=== PATIENT | female | born 1985 | race Caucasian/White ===

== ENCOUNTER 2016-12-10 14:12 | Inpatient (IN) | payer BC ==
[2016-12-10 16:14] LABS: Hematocrit 36 % (35-47); Hemoglobin 11.9 g/dl (12.0-16.0); Mean Corpuscular HGB Conc 34 g/dl (31-36); Mean Corpuscular Hemoglobin 29 pg (27-31); Mean Corpuscular Volume 87 fL (80-97); Mean Platelet Volume 8 um3 (7.4-10.4); Red Blood Count 4.08 10^6/ul (4.0-5.4); Red Cell Distribution Width 13 % (10.5-15); White Blood Count 13.1 10^3/ul (3.5-10.8)
[2016-12-10] MEDS ORDERED: OBEPIDURAL* 0 ML ONE (19:19)
[2016-12-10] MEDS ORDERED: Sodium Citrate/Citric Acid* 15 ML UDC PO PRN (21:00)
[2016-12-10] MEDS ORDERED: OBEPIDURAL* 250 ML EPIDURAL SCH (21:00)
[2016-12-10] MEDS ORDERED: EPHEDrine (Pressors)* 50 MG/ML VIAL IV PUSH PRN ×2 (21:00)
[2016-12-10] MEDS ORDERED: Phenylephrine IV* 40 MCG/ML 10 ML SYRINGE IV PUSH PRN ×2 (21:00)
[2016-12-10] MEDS ORDERED: Famotidine TAB* 20 MG PO PRN (21:00)
[2016-12-10] MEDS ORDERED: Glycerin ADULT SUPP PR PRN (21:17)
[2016-12-10] MEDS ORDERED: Acetaminophen TAB* 325 MG PO PRN (21:17)
[2016-12-10] MEDS ORDERED: Witch Hazel PAD* JAR TOPICAL PRN (21:17)
[2016-12-10] MEDS ORDERED: Dibucaine 1% 28.35 GM TUBE PR PRN (21:17)
[2016-12-10] MEDS: Ibuprofen TAB* 600 MG PO PRN (23:14)
[2016-12-11] MEDS: Ibuprofen TAB* 600 MG PO PRN ×3 (07:53→22:00)
[2016-12-11] MEDS ORDERED: Simethicone TAB* 80 MG TAB.CHEW PO SCH (08:30)
[2016-12-11] MEDS ORDERED: Ferrous Gluconate TAB* 324 MG TAB PO SCH (09:00)
[2016-12-11] MEDS: Docusate CAP* 100 MG PO SCH ×3 (09:18→22:00)
[2016-12-11 09:53] LABS: Hematocrit 32 % (35-47); Hemoglobin 10.6 g/dl (12.0-16.0); Mean Corpuscular HGB Conc 34 g/dl (31-36); Mean Corpuscular Hemoglobin 30 pg (27-31); Mean Corpuscular Volume 88 fL (80-97); Mean Platelet Volume 8 um3 (7.4-10.4); Red Cell Distribution Width 13 % (10.5-15); White Blood Count 14.7 10^3/ul (3.5-10.8)
[2016-12-11] MEDS ORDERED: Influenza VAC *QUAD* 2017-18* 0.5 ML SYRINGE IM ONE (10:00)
[2016-12-12 07:49] VITALS: BP 123/83
[2016-12-12] MEDS: Docusate CAP* 100 MG PO SCH (07:54)
[2016-12-12] MEDS: Ibuprofen TAB* 600 MG PO PRN (07:54)
== END 2016-12-12 10:57 | disposition home or self-care (01) | DRG 560 ==
LOC: MCHOBOUT 14:12 → MCHOB 15:38
PROVIDERS: ADMIT Midwife; ATTEND Midwife
PROC: 10E0XZZ Delivery of Products of Conception, External Approach (ICD-10-PCS; principal; 2016-12-10)
PROC: 10907ZC Drainage of Amniotic Fluid, Therapeutic from Products of Conception, Via Natural or Artificial Opening (ICD-10-PCS; 2016-12-10)
DX: O60.23X0 Term delivery with preterm labor, third trimester, not applicable or unspecified (principal); O69.81X0 Labor and delivery complicated by cord around neck, without compression, not applicable or unspecified; Z37.0 Single live birth; Z3A.38 38 weeks gestation of pregnancy
CPT/HCPCS: 36415; 85025; 86850; 86900; 86901; A9270-GY